=== PATIENT | male | born 1945 | race Caucasian/White ===

== ENCOUNTER → 2020-03-14 14:21 | Outpatient (BNVA) | payer MEDICARE, SELFPAY | PROVIDERS: Visit Provider Nurse Practitioner Family | DX: Z11.59 Encounter for screening for other viral diseases (principal); J06.9 Acute upper respiratory infection, unspecified | CPT/HCPCS: 87635 ==

== ENCOUNTER → 2023-11-02 14:03 | Outpatient (BNVA) | payer OTHER, SELFPAY | PROVIDERS: Visit Provider Nurse Practitioner Family | DX: D48.5 Neoplasm of uncertain behavior of skin (principal); L57.0 Actinic keratosis; L57.8 Other skin changes due to chronic exposure to nonionizing radiation; D22.5 Melanocytic nevi of trunk; L81.4 Other melanin hyperpigmentation; Z85.828 Personal history of other malignant neoplasm of skin | CPT/HCPCS: 11102; 17004; 99213 ==

== ENCOUNTER 2023-12-03 16:04 | Outpatient (CLI) | payer OTHER, SELFPAY ==
[2023-12-03 16:44] LABS: Basophils % 0.3 %; Eosinophils # 0.1 10^3/uL (0.0-0.8); Eosinophils % 1.5 %; Hematocrit 47.4 % (37-53); Lymphocytes # 1.9 10^3/uL (0.8-4.8); Lymphocytes % 27.9 %; Mean Corpuscular HGB Conc 33.1 g/dL (30-55); Mean Corpuscular Hemoglobin 30.6 pg (27-33); Mean Corpuscular Volume 92.4 fl (82-101); Mean Platelet Volume 10.1 fL (7.4-10.4); Monocytes # 0.7 10^3/uL (0.2-0.9); Monocytes % 9.9 %; Neutrophils # 4.04 10^3/uL (1.8-7.7); Neutrophils % 60.3 %; Nucleated Red Blood Cells % 0 %; Platelet Count 196 10^3/cmm (157-399); Red Blood Count 5.13 10^6/uL (3.85-5.65); Red Cell Distribution Width 13.5 % (12.1-15.1)
[2023-12-03 17:19] LABS: Albumin Level 4.3 g/dL (3.5-5.2); Blood Urea Nitrogen 21 mg/dL (8-23); Carbon Dioxide 26 mmol/L (22-29); Chloride 103 mmol/L (98-107); Glucose 182 mg/dL (65-115); Phosphorus 3.6 mg/dL (2.5-4.5); Sodium 141 mmol/L (136-145)
[2023-12-03 17:27] LABS: 25 Hydroxy Vitamin D 38 ng/mL (30-100)
[2023-12-03 17:43] LABS: Calcium 9.2 mg/dL (8.5-10.5)
[2023-12-03 17:50] LABS: Parathyroid Hormone 39.3 pg/mL (15-65)
== END 2023-12-03 16:05 | disposition home or self-care (01) ==
LOC: LAB 16:10
PROVIDERS: PCP Emergency Medicine Emergency Medical Services; Visit Provider Emergency Medicine Emergency Medical Services
DX: N17.9 Acute kidney failure, unspecified (principal); N18.2 Chronic kidney disease, stage 2 (mild); Z01.89 Encounter for other specified special examinations
CPT/HCPCS: 36415; 80069; 82306; 82310; 83970; 85025

== ENCOUNTER → 2023-12-09 08:21 | Outpatient (BNVA) | payer OTHER, SELFPAY | PROVIDERS: PCP Emergency Medicine Emergency Medical Services; Visit Provider Dermatology | DX: D48.5 Neoplasm of uncertain behavior of skin (principal) | CPT/HCPCS: 11624; 12042 ==

== ENCOUNTER 2023-12-21 09:36 | Outpatient (CLI) | payer OTHER, SELFPAY ==
--- NOTE | 2023-12-21 09:40 | US_ITS ---
WS: [id number] RENAL ULTRASOUND HISTORY: ACUTE NONTRAUMATIC KIDNEY INJURY, NOT OTHERWISE SPECIFIED COMPARISON: None available. TECHNIQUE: 2-D and color Doppler imaging of the kidney submitted. Right kidney: 11.2 cm x 5.3 cm x 6.1 cm. Cortex: 1.1 cm Kidney is normal size. There is a hypoechoic mass anterior to the RIGHT kidney which may be connected to the kidney. There is not a definite connection. This mass measures 3.6 x 3.3 x 2.0 cm. No hydrone phrosis. Left kidney: 12.0 cm x 4.8 cm x 6.6 cm. Cortex: 1.4 cm Normal size kidney. Known obstructing calcification upper pole measures 1.2 x 1.5 x 0.7 cm. Aorta: Normal. Urinary Bladder: Normal distention. US/US renal BI* [id number] IMPRESSION: 1. No hydronephrosis. 2. Hypoechoic mass adjacent to the RIGHT kidney. This is not a simple cyst. Th is mass measures 3.6 x 3.3 x 2.0 cm. This could be an exophytic mass with a sma ll stalk or external to the kidney. Recommend follow-up CT abdomen and pelvis w [facility] renal mass protocol to better define this mass.
== END 2023-12-21 09:37 | disposition home or self-care (01) ==
LOC: RAD 09:37
PROVIDERS: PCP Emergency Medicine Emergency Medical Services; Visit Provider Internal Medicine Nephrology
DX: N17.9 Acute kidney failure, unspecified (principal); N28.89 Other specified disorders of kidney and ureter
CPT/HCPCS: 76770

== ENCOUNTER 2024-01-06 15:54 | Outpatient (CLI) | payer OTHER, SELFPAY ==
--- NOTE | 2024-01-06 15:58 | CTR_ITS ---
PROCEDURE INFORMATION: Exam: CT Abdomen And Pelvis Without And With Contrast Exam date and time: 01/06/2024 4:08 PM Age: 78 years old Clinical indication: Condition or disease; Kidney or ureter condition; Prior surgery; Surgery date: 6+ months; Surgery type: Kidney stones, lithotripsy; Patient HX: Follow up US, right renal mass TECHNIQUE: Imaging protocol: Computed tomography of the abdomen and pelvis without and with contrast. 3D rendering (Not supervised by radiologist): MIP and/or 3D reconstructed images were created by the technologist. Radiation optimization: All CT scans at this facility use at least one of these dose optimization techniques: automated exposure control; mA and/or kV adjustment per patient size (includes targeted exams where dose is matched to clinical indication); or iterative reconstruction. Contrast material: OMNI 350; Contrast volume: 100 ml; Contrast route: INTRAVENOUS (IV); COMPARISON: US renal BI* [id number] 12/21/2023 10:06 AM RADIATION DOSE METRICS: Total DLP (mGy-cm): 3375.5 FINDINGS: Lungs: Calcified granuloma posterior right lung base. Small amounts of scarring and/or subsegmental atelectasis in the lung bases. Heart: Mild cardiomegaly. Liver: Normal. No mass. Gallbladder and bile ducts: Normal. No calcified stones. No ductal dilation. Pancreas: Normal. No ductal dilation. Spleen: Normal. No splenomegaly. Adrenal glands: Normal. No mass. Kidneys and ureters: Two large nonobstructing left renal calculi. The largest is in the upper pole measuring 2 cm in maximum dimension. It is dumbbell-shaped. There is a 2.9 cm by 2.4 cm by 3.5 cm thick-walled low-density lesion abutting the anteromedial margin of the mid to lower right kidney. It is probably exophytically arising from the kidney, but it is also abutting the posterior wall of the ascending colon, so could be exophytically arising from the outer wall of the colon. This is considered less likely. The thick wall appears to be diffusely enhancing. The more hypodense center of this mass is not obviously enhancing. This may be a complicated benign cyst, however, the recent ultrasound could not confirm that it was definitely cystic. Therefore, this could be neoplasm. Consideration should be given to needle biopsy of this or further characterization of it with a contrast-enhanced MRI. There is a slightly larger simple cyst exophytically from the posterior right kidney and a slightly smaller simple cyst in the anterior upper left kidney. These 2 cysts appear simple and benign, and need no follow-up. Otherwise, unremarkable. Stomach and bowel: A few diverticula from the colon. No acute diverticulitis. Otherwise, unremarkable. Appendix: No evidence of appendicitis. Intraperitoneal space: Unremarkable. No free air. No significant fluid collection. Vasculature: Moderate amount of arterial calcification. Otherwise, unremarkable. Lymph nodes: Unremarkable. No enlarged lymph nodes. Urinary bladder: Unremarkable as visualized. Reproductive: Unremarkable as visualized. Bones/joints: Mild scoliosis. Mild and moderate multilevel spondylosis. Partial ankylosis visualized lower thoracic spine. Partial ankylosis left sacroiliac joint. Otherwise, unremarkable. Soft tissues: Small bilateral fat containing inguinal hernias. Otherwise, unremarkable visualized body wall. Otherwise, unremarkable soft tissues. CT/CT abdomen pelvis wo/w [id number] IMPRESSION: 1. 2.9 cm x 2.4 cm x 3.5 cm thick-walled low-density lesion is probably arising exophytically from the anteromedial lower right kidney. Much less likely it could be exophytically arising from the posterior wall of the ascending colon. This may be a complicated cyst, but could be a neoplasm. Consider needle biopsy of it or further characterizing it with contrast-enhanced MRI. 2. Additional details as above.
[2024-01-06] MEDS: iohexol 350 mg/mL 500 mL Btl (per mL) IV (16:15)
== END 2024-01-06 15:55 | disposition home or self-care (01) ==
LOC: RAD 15:54
PROVIDERS: PCP Emergency Medicine Emergency Medical Services; Visit Provider Registered Nurse
DX: N28.89 Other specified disorders of kidney and ureter (principal)
CPT/HCPCS: 74178; Q9967

== ENCOUNTER → 2024-05-03 08:20 | Outpatient (BNVA) | payer OTHER, SELFPAY | PROVIDERS: PCP Emergency Medicine Emergency Medical Services; Visit Provider Nurse Practitioner Family | DX: I87.2 Venous insufficiency (chronic) (peripheral) (principal); L57.0 Actinic keratosis; L57.8 Other skin changes due to chronic exposure to nonionizing radiation; D22.5 Melanocytic nevi of trunk; L81.4 Other melanin hyperpigmentation; Z85.828 Personal history of other malignant neoplasm of skin; Z86.006 Personal history of melanoma in-situ | CPT/HCPCS: 17000; 99214 ==

== ENCOUNTER → 2024-08-01 08:06 | Outpatient (BNVA) | payer OTHER, SELFPAY | PROVIDERS: PCP Emergency Medicine Emergency Medical Services; Visit Provider Nurse Practitioner Family | DX: I87.2 Venous insufficiency (chronic) (peripheral) (principal); L57.8 Other skin changes due to chronic exposure to nonionizing radiation; D22.5 Melanocytic nevi of trunk; L81.4 Other melanin hyperpigmentation; Z85.828 Personal history of other malignant neoplasm of skin | CPT/HCPCS: 17004; 99214 ==

== ENCOUNTER → 2024-10-31 13:46 | Outpatient (BNVA) | payer OTHER, SELFPAY | PROVIDERS: PCP Emergency Medicine Emergency Medical Services; Visit Provider Nurse Practitioner Family | DX: L57.8 Other skin changes due to chronic exposure to nonionizing radiation (principal); L81.4 Other melanin hyperpigmentation; D22.5 Melanocytic nevi of trunk; L82.1 Other seborrheic keratosis; Z85.828 Personal history of other malignant neoplasm of skin; Z08 Encounter for follow-up examination after completed treatment for malignant neoplasm; Z86.006 Personal history of melanoma in-situ; L57.0 Actinic keratosis | CPT/HCPCS: 17004; 99213 ==

== ENCOUNTER → 2024-12-07 14:39 | Outpatient (BNVA) | payer OTHER, SELFPAY | PROVIDERS: PCP Emergency Medicine Emergency Medical Services; Visit Provider Nurse Practitioner Family | DX: L57.8 Other skin changes due to chronic exposure to nonionizing radiation (principal); L81.4 Other melanin hyperpigmentation; D22.5 Melanocytic nevi of trunk; L82.1 Other seborrheic keratosis; Z86.006 Personal history of melanoma in-situ; Z08 Encounter for follow-up examination after completed treatment for malignant neoplasm; Z85.828 Personal history of other malignant neoplasm of skin; L57.0 Actinic keratosis | CPT/HCPCS: 17000; 99213 ==

== ENCOUNTER → 2025-03-15 10:15 | Outpatient (BNVA) | payer OTHER, SELFPAY | PROVIDERS: PCP Emergency Medicine Emergency Medical Services; Visit Provider Nurse Practitioner Family | DX: L57.8 Other skin changes due to chronic exposure to nonionizing radiation (principal); L81.4 Other melanin hyperpigmentation; D22.5 Melanocytic nevi of trunk; L82.1 Other seborrheic keratosis; Z86.006 Personal history of melanoma in-situ; Z08 Encounter for follow-up examination after completed treatment for malignant neoplasm; Z85.828 Personal history of other malignant neoplasm of skin; L57.0 Actinic keratosis | CPT/HCPCS: 17000; 99213 ==

== ENCOUNTER → 2025-07-04 07:56 | Outpatient (BNVA) | payer OTHER, SELFPAY | PROVIDERS: PCP Emergency Medicine Emergency Medical Services; Visit Provider Nurse Practitioner Family | DX: N62 Hypertrophy of breast (principal); L57.8 Other skin changes due to chronic exposure to nonionizing radiation; L81.4 Other melanin hyperpigmentation; L82.1 Other seborrheic keratosis; D22.5 Melanocytic nevi of trunk; Z86.006 Personal history of melanoma in-situ; Z08 Encounter for follow-up examination after completed treatment for malignant neoplasm; Z85.828 Personal history of other malignant neoplasm of skin; L57.0 Actinic keratosis | CPT/HCPCS: 17000; 99213 ==

== ENCOUNTER → 2025-07-31 13:19 | Outpatient (BNVA) | payer OTHER, SELFPAY | PROVIDERS: PCP Emergency Medicine Emergency Medical Services; Visit Provider Podiatrist Foot & Ankle Surgery | DX: E11.42 Type 2 diabetes mellitus with diabetic polyneuropathy (principal); L60.3 Nail dystrophy | CPT/HCPCS: 11721; 99203 ==